=== PATIENT | female | born 1985 | race Caucasian/White ===

== ENCOUNTER 2022-11-03 08:31 | Outpatient (CLI) | payer OTHER, SELFPAY ==
--- NOTE | 2022-11-03 11:00 | NEURO_ITS ---
Impression: Patient reports a history of left hand pain and numbness. # Mild left carpal tunnel syndrome. # Normal EMG/needle exam. # Clinical correlation recommended. Motor Nerve Conduction Upper Extremities Median Nerve Conduction Velocity (m/sec) Terminal Latency (msec) Response Voltage(mV) Elbow-Wrist Wrist Elbow Wrist Right 46 2.3 5 10 Left 46 2.7 3 7 Ulnar Nerve Conduction Velocity (m/sec) Terminal Latency (msec) Response Voltage(mV) Above Elbow Below Elbow Wrist Above Elbow Below Elbow Wrist Right 63 54 2.0 9 9 10 Left 61 61 2.3 6 6 7 F-Wave Latency Median (ms) Ulnar (ms) Right 24.0 23.2 Left 25.0 23.2 Sensory Nerve Conduction Upper Extremities Median Nerve Stimulation Terminal Latency (msec) Wrist/Digit Response Voltage (uV) Wrist Right 3.9/3.5 53/33 Left 3.9/4.1 22/13 Ulnar Nerve Stimulation Terminal Latency (msec) Wrist/Digit Response Voltage (uV) Wrist Right 2.4 58 Left 2.3 41 Radial Nerve Terminal Latency (msec) Response Voltage(mV) Right 1.8 50 Left 2.0 54 Left Right Muscles Examined Fibrillation Fasciculation Scarcity Voltage Duration Left Right Left Right Left Right Left Right Left Right Deltoid Biceps X X Brachioradialis Triceps X X Pronator Teres X X Ext Indicis X X Ext Digitorum X X Abd Poll Brev X X 1st Dorsal Interosseus Paraspinals MTDD
== END 2022-11-03 08:32 | disposition home or self-care (01) ==
LOC: ANHNEURO 08:33
PROVIDERS: Visit Provider Nurse Practitioner Family
DX: R20.2 Paresthesia of skin (principal); G56.02 Carpal tunnel syndrome, left upper limb
CPT/HCPCS: 95886; 95911